=== PATIENT | female | born 1945 | race Caucasian/White ===

== ENCOUNTER 2018-02-16 14:11 | Emergency (ER) | payer OTHER ==
[~2018-02-16] VITALS: Ht 149.9 cm; Wt 56.2 kg
[2018-02-16] MEDS ORDERED: ASA5UEC PO (14:26)
[2018-02-16] MEDS ORDERED: LASIX 20 MG TAB20 MG PO (14:26)
[2018-02-16] MEDS ORDERED: VITAMIN E400 UNIT PO (14:27)
[2018-02-16] MEDS ORDERED: COREG6.25 MG PO (14:27)
[2018-02-16] MEDS ORDERED: LIPITOR10 MG PO (14:27)
[2018-02-16] MEDS ORDERED: NIASPAN 500 MG500 M1 PO (14:28)
[2018-02-16] MEDS ORDERED: FISH OIL 1,001000 M2 PO (14:28)
[2018-02-16] MEDS ORDERED: CAPOTEN 25MG TA25 MG PO (14:29)
[2018-02-16] MEDS ORDERED: GENTAK5 ML INTRAOCULR (14:49)
[2018-02-16 15:30] LABS: CALCIUM 10.2 mg/dL (8.5-10.1); CREATININE 1.3 mg/dL (0.6-1.3)
[2018-02-16] MEDS ORDERED: VALACYCLOVIR1000 MG PO (15:34)
[2018-02-16 15:45] VITALS: BP 131/62
== END 2018-02-16 15:46 | disposition home or self-care (01) ==
LOC: M.ERS 14:11
PROVIDERS: Emergency Medicine Emergency Medical Services
DX: H10.9 Unspecified conjunctivitis (principal); I10 Essential (primary) hypertension

== ENCOUNTER → 2018-11-21 | Outpatient (CLI) | payer OTHER ==
[~2018-11-21] MED LIST: ASA5UEC PO; CAPOTEN 25MG TA25 MG PO; COREG6.25 MG PO; FISH OIL 1,001000 M2 PO; GENTAK5 ML INTRAOCULR; LASIX 20 MG TAB20 MG PO; LIPITOR10 MG PO; NIASPAN 500 MG500 M1 PO; VALACYCLOVIR1000 MG PO; VITAMIN E400 UNIT PO
== END ==
LOC: M.ULTRA 12:58
DX: I65.23 Occlusion and stenosis of bilateral carotid arteries (principal)

== ENCOUNTER → 2020-03-20 | Outpatient (CLI) | payer MEDICARE | LOC: M.ULTRA 10:54 | PROVIDERS: ATTEND Internal Medicine | DX: N28.1 Cyst of kidney, acquired (principal); N28.89 Other specified disorders of kidney and ureter ==

== ENCOUNTER 2020-04-15 10:16 | Emergency (ER) | payer OTHER ==
[~2020-04-15] VITALS: Ht 152.4 cm; Wt 58.3 kg
[2020-04-15] MEDS ORDERED: TUMS ULTRA ST1177 MG PO (10:34)
[2020-04-15 10:51] LABS: ABSOLUTE BASOPHILS 0.1 thou/uL (0.0-0.2); ABSOLUTE EOSINOPHILS 0.4 thou/uL (0.0-0.7); ABSOLUTE LYMPHOCYTES 2.9 thou/uL (0.8-5.3); ABSOLUTE MONOCYTES 1.1 thou/uL (0.0-1.2); ABSOLUTE NEUTROPHILS 13.1 thou/uL (1.6-8.1); BASOPHILS 0.8 %; EOSINOPHILS 2.5 %; HEMATOCRIT 31.2 % (37.0-47.0); HEMOGLOBIN 10.1 gm/dL (12.0-15.0); LYMPHOCYTES 16.5 %; MCH 31.3 pg (26.0-34.0); MCHC 32.2 g/dL (28.0-37.0); MONOCYTES 6.1 %; MPV 10.5 fl. (7.2-11.1); NUCLEATED RBCS 0 /100WBC; PLATELET COUNT* 379 thou/uL (150-400); POLYS 74.1 %; RBC 3.22 mil/uL (4.20-5.00); RDW-CV 16.3 % (10.5-14.5); WBC 17.7 thou/uL (4.0-11.0)
[2020-04-15 11:01] LABS: CALCIUM 10.3 mg/dL (8.5-10.1); POTASSIUM 4.4 mmol/L (3.5-5.1)
[2020-04-15 11:05] LABS: ALBUMIN 2.8 g/dL (3.4-5.0); TOTAL BILIRUBIN 0.5 mg/dL (<0.1-1.0); TOTAL PROTEIN 7.2 g/dL (6.4-8.2)
[2020-04-15 11:52] LABS: URINE BILIRUBIN NEGATIVE (Negative); URINE BLOOD NEGATIVE (Negative); URINE CLARITY CLEAR; URINE COLOR YELLOW; URINE GLUCOSE-RANDOM NEGATIVE (Negative); URINE KETONES NEGATIVE (Negative); URINE LEUKOCYTES-REFLEX NEGATIVE (Negative); URINE NITRITE-REFLEX NEGATIVE (Negative); URINE PROTEIN NEGATIVE (Negative); URINE SPECIFIC GRAVITY 1.015 (1.005-1.030); URINE UROBILINOGEN 0.2 E.U./dl (0.2-1.0)
[2020-04-15 12:33] LABS: APTT 23.5 Seconds (25.0-31.3)
[2020-04-15 14:46] VITALS: BP 154/59
--- NOTE | 2020-04-16 16:19 | EKG ---
[place] [address] ELECTROCARDIOGRAM REPORT Name: REINA LEON Room: [facility]#: [id number] Admission: 04/15/20 Attend Phys: Discharge: 04/15/20 Date of : 43 Date of Service: 04/15/20 1032 Report #: [id number] THIS REPORT FOR: //name// [facility] ED Test Date: 2020-04-15 Test Time: 10:32:01 Pat Name: REINA LEON Department: Room: Gender: Pole Maker: TDS : 1945 Requested By: Abbe Denson Order Number: [id number] MD: Giuseppe Mg Measurements Intervals [place] Rate: 62 P: 16 [place]: 169 QRS: 66 QRSD: 136 T: 35 QT: 380 QTc: 386 Interpretive Statements Sinus rhythm Right bundle branch block No previous ECG available for comparison Electronically Signed On 04-16-2020 16:19:10 CDT by Giuseppe Mg [email or web address] <ELECTRONICALLY SIGNED> By: Giuseppe Mg MD, [facility] 04/16/20 1619 31 103 Giuseppe Mg MD, FACC /EPI
== END 2020-04-15 14:48 | disposition short-term general hospital (02) ==
LOC: M.ERS 10:16
PROVIDERS: Physician Assistant
DX: N19 Unspecified kidney failure (principal); Z20.828 Contact with and (suspected) exposure to other viral communicable diseases; C44.309 Unspecified malignant neoplasm of skin of other parts of face; R34 Anuria and oliguria; I10 Essential (primary) hypertension; R79.89 Other specified abnormal findings of blood chemistry; Z79.82 Long term (current) use of aspirin; Z79.899 Other long term (current) drug therapy; Z98.890 Other specified postprocedural states

== ENCOUNTER → 2020-09-10 | Outpatient (CLI) | payer OTHER ==
[~2020-09-10] MED LIST changes: +ASPIRIN EC325 MG PO; +CALCIUM500 MG PO; +FUROSEMIDE 20 M20 MG PO; +NIACIN 500 MG500 M1 PO; +TUMS ULTRA ST1177 MG PO
--- NOTE | 2020-09-10 18:13 | CARDNUC ---
[place] [address] CARDIAC NUCLEAR IMAGING REPORT Name: REINA LEON Room: [facility]#: [id number] Admission: 09/10/20 Attend Phys: Nii Sesay, Discharge: Date of : 43 Date of Service: 09/10/20 1813 Report #: [id number] THIS REPORT FOR: cc: Negar Love,Negar Brooks,Jose Foreman MD [facility] ~ APPROVED REPORT Imaging Protocol: Stress Tc-99m/Rest Tc-99m 1 day Study performed: 09/10/2020 11:34:34 Indication: Syncope with fall, CAD s/p CABG. Patient Location: Out-Patient Stress Tech: Guerline Brown Stress Nurse: Cheri Mcneal RN Ht: 4 ft 8 in Wt: 116 lbs BSA: 1.41 m2 BMI: 26.00 Medical History Medical History: CAD s/p IA, CAD s/p CABG, Cardiomyopathy, Carotid artery disease, CHF, CKD stage 4, Former Smoker, HTN, Hyperlipidemia, PVD, Stroke/TIA, Weakness, Syncope with fall/LOC, Biotel heart patch. Medications: Atorvastatin, Captopril, Lasix, Axis 3-fatty acids, ASA 325 Mg. Allergies: No known drug allergies Cardiac Risk Factors: Age, FHX of CAD, HTN, Hyperlipidemia, Past Smoker, PVD, Cardiomyopathy. Previous Cardiac Procedures: Myocardial infarction, CABG. Pretest Chest Pain Characteristics: No chest pain Exercise History: Sedentary Physical Disabilities: Generalized weakness, LITTLE TRAVERSE, slow/shuffled gait. Meds Held (24 hrs): None Resting Data Rest SPECT myocardial perfusion imaging was performed in supine position 30 minutes following the intravenous injection of 10.0 mCi of Tc-99m Sestamibi. Time of rest injection: 10:05 The images were gated to evaluate regional wall motion and calculate left ventricular ejection fraction. Administration Route: [place] [address] CARDIAC NUCLEAR IMAGING REPORT Name: REINA LEON Room: [facility]#: [id number] Admission: 09/10/20 Attend Phys: Nii Sesay, Discharge: Date of : 43 Date of Service: 09/10/20 1813 Report #: [id number] Administration Site: Right Arm Pharmacologic Stress Pharmacologic stress test was performed by injecting Regadenoson 0.4 mg IV push over 10-15 seconds immediately followed by the intravenous injection of 31.6 mCi of Tc-99m Sestamibi. Time of stress injection: 11:45 Administration Route: IV Administration Site: Right Arm Heart Rate at time of stress injection: 90 bpm. Gated Stress SPECT was performed 40 minutes after stress injection. The images were gated to evaluate regional wall motion and calculate left ventricular ejection fraction. Prone imaging was performed. Stress Test Details Stress Test: Pharmacologic stress testing performed using 0.4 mg of regadenoson per 5 mL given IV over 10 seconds. Reason for pharmacologic stress test: Generalized weakness, LITTLE TRAVERSE, slow/shuffled gait.. HR Max Heart Rate (APMHR): 144 bpm Resting HR: 62 bpm Target HR (85% APMHR): 122 bpm Max HR Achieved: 90 bpm % of APMHR: 62 Recovery HR: 85 bpm BP Resting BP: 182/86 mmHg Max BP: 143/72 mmHg Recovery BP: 182/73 mmHg ECG Resting ECG: Sinus Rhythm Stress ECG: Sinus Rhythm ST Change: None Arrhythmia: None Recovery ECG: Sinus Rhythm Recovery ST Change: None Recovery Arrhythmia: None Clinical Reason for Termination: Completed protocol Stress Symptoms: Increased weakness. Exercise duration: 00 min 00 sec Exercise capacity: 1.00 [place] [address] CARDIAC NUCLEAR IMAGING REPORT Name: REINA LEON Room: [facility]#: [id number] Admission: 09/10/20 Attend Phys: Nii Sesay, Discharge: Date of : 43 Date of Service: 09/10/20 1813 Report #: [id number] The patient tolerated Lexiscan infusion without significant cardiac symptoms. Nurse Comments A 75 year old female presented for a sitting Lexiscan r/t CAD s/p CABG and recent syncope with fall/hospitalization. Test well tolerated. Recovery unremarkable. Patient was stable and stated she felt good when escorted via wheelchair to Nuclear Medicine for imaging. Stress ECG Conclusion Baseline twelve-lead EKG shows sinus rhythm with nonspecific T wave inversion without significant ST segment abnormality. EKGs obtained during and post Lexiscan infusion show sinus rhythm with no significant ST segment changes when compared to baseline. There were no stress-induced arrhythmias. Study Quality Study: Good Artifact: No artifact Study Data At rest, the left ventricular ejection fraction was 49%.. Post stress, the left ventricular ejection was 43%.. TID = 1.01. Perfusion Perfusion images obtained at rest and post Lexiscan stress show a moderate size severe intensity fixed defect involving the apex. No other fixed or reversible defects were identified. Wall Motion There is apical akinesis. Global LV systolic function appears to be mildly decreased. There is a septal wall motion abnormality consistent with prior bypass procedure. Nuclear Conclusion ECG Findings: negative for ischemia Clinical Findings: negative for ischemia Nuclear Findings: negative for ischemia Exercise Capacity: not assessed Left Ventricular Function: abnormal Perfusion images are consistent with prior apical infarct. Left ventricular systolic function appears mildly decreased on gated studies. No evidence of ischemia was seen. This [place] [address] CARDIAC NUCLEAR IMAGING REPORT Name: REINA LEON Room: [facility]#: [id number] Admission: 09/10/20 Attend Phys: Nii Sesay, Discharge: Date of : 43 Date of Service: 09/10/20 1813 Report #: [id number] <Conclusion> Baseline twelve-lead EKG shows sinus rhythm with nonspecific T wave inversion without significant ST segment abnormality. EKGs obtained during and post Lexiscan infusion show sinus rhythm with no significant ST segment changes when compared to baseline. There were no stress-induced arrhythmias. <ELECTRONICALLY SIGNED> By: Jose Hawley MD, FACC 09/10/201812 12 12 Jose Hawley MD, FACC /INF
== END ==
LOC: M.NUC 09:44
PROVIDERS: ATTEND Internal Medicine
DX: I25.10 Atherosclerotic heart disease of native coronary artery without angina pectoris (principal); R55 Syncope and collapse; Z95.1 Presence of aortocoronary bypass graft